=== PATIENT | male | born 1985 | race Caucasian/White ===

== ENCOUNTER 2017-04-06 16:57 | Inpatient (IN) | payer OTHER ==
[~2017-04-06] VITALS: Ht 175.3 cm; Wt 82.7 kg
[2017-04-06 17:12] VITALS: BP 131/81
[2017-04-06 17:30] LABS: BASO # 0.1 10*3/uL (0.0-0.1); BASO % 0.7 % (0.0-1.0); EOS # 0.2 10*3/uL (0.0-0.4); EOS % 1.7 % (1.0-4.0); HEMATOCRIT 39.6 % (42.0-52.0); HEMOGLOBIN 13.4 g/dl (14.0-18.0); LYMPH # 1.2 10*3/uL (1.3-4.4); LYMPH % 11.7 % (27.0-41.0); MEAN CELL VOLUME 84.6 fl (80.0-94.0); MEAN CORPUSCULAR HGB 28.6 pg (27.0-31.0); MEAN CORPUSCULAR HGB CONC 33.8 g/dl (33.0-37.0); MEAN PLATELET VOLUME 9.4 fl (9.6-12.3); MONO # 0.6 10*3/uL (0.1-1.0); NEUT # 8.2 10*3/uL (2.3-7.9); NEUT % 79.6 % (47.0-73.0); PLATELET COUNT AUTOMATED 331 10*3/uL (130-400); RED BLOOD COUNT 4.68 10*6/uL (4.50-5.90); RED CELL DISTRI WIDTH 13.3 % (0-14.5); WHITE BLOOD COUNT 10.3 10*3/uL (4.8-10.8)
[2017-04-06 17:31] LABS: BILIRUBIN NEGATIVE (NEGATIVE); BLOOD NEGATIVE (NEGATIVE); CLARITY CLEAR (CLEAR); COLOR YELLOW (YELLOW); GLUCOSE NEGATIVE (NEGATIVE); KETONE NEGATIVE (NEGATIVE); LEUKO ESTERASE NEGATIVE (NEGATIVE); NITRITE NEGATIVE (NEGATIVE); PH 5.5 (5.0-9.0); SPECIFIC GRAVITY 1.025 (1.005-1.030); UROBILINOGEN 0.2 E.U./dl (0.2-1.0)
[2017-04-06 17:39] LABS: URINE AMPHETAMINES < 1000 (1000ng/ml); URINE BARBITURATES < 200 (200ng/ml); URINE BENZODIAZEPINES < 200 (200ng/ml); URINE CANNABINOIDS (THC) < 50 (50ng/ml); URINE COCAINE < 300 (300ng/ml); URINE METHADONE < 300 (300ng/ml); URINE OPIATES > 300 (300ng/ml); URINE PHENCYCLIDINE < 25 (25ng/ml)
[2017-04-06 17:43] LABS: BACTERIA TRACE; MUCOUS 1+; WBC 0-2 wbc/hpf (0-5)
[2017-04-06 17:47] LABS: ALBUMIN 3.9 gm/dl (3.1-4.5); ALKALINE PHOSPHATASE 54 U/L (45-117); BUN 8 mg/dl (7-24); CHLORIDE 100 mmol/L (98-107); CREATININE 0.87 mg/dL (0.70-1.30); POTASSIUM 4.1 mmol/L (3.5-5.1); SGOT/AST 11 IU/L (3-35); SGPT/ALT 18 U/L (12-78); SODIUM 139 mmol/L (136-145)
[2017-04-06 17:49] LABS: ACETAMINOPHEN (TYLENOL) < 2.0 ug/ml (10-30); ETHYL ALCOHOL < 3.0 mg/dl (<3)
--- NOTE | 2017-04-06 19:00 | NUR ---
PT REFUSED FLU/PNEUMONIA VACCINE AT THIS TIME
--- NOTE | 2017-04-06 19:00 | NUR ---
A 31, admitted to , under the services of CRISTINA Pollock DO with a diagnosis of . Chief complaint is SUBSTANCE ABUSE WITHDRAWL. Patient arrived via ambulatory from ER. Monitor applied. Initial assessment completed. Vital signs taken and recorded. CRISTINA POLLOCK DO notified of admission to the unit. Orders received. See assessment for past medical history, medications and allergies. Patient and/or family oriented to unit. visitation policy reviewed. Clothing/patient valuable form completed. MELISSA MCCLENDON
--- NOTE | 2017-04-06 19:00 | NUR ---
MEDICATION REQ COMPLETED IN THE ER
[2017-04-06 20:00] VITALS: BP 115/66
[2017-04-07] VITALS: BP 128/69
--- NOTE | 2017-04-07 02:00 | NUR ---
PT REQUESTING PRN MEDICATIONS, ADMINISTERED TRAZODONE, REQUIP, ROBAXINE AND VISTARIL PO PER ORDERS WILL MONITOR EFFECTS
[2017-04-07] MEDS ORDERED: CLONIDINE0.2 MG PO (02:21)
[2017-04-07] MEDS ORDERED: LITHIUM CARBON300 MG PO (02:21)
[2017-04-07] MEDS ORDERED: NEURONTIN600 MG PO (02:22)
--- NOTE | 2017-04-07 02:23 | NUR ---
MEDICATION REQ VERIFIED WITH PT AND RESIDENT NOTIFIED
--- NOTE | 2017-04-07 03:00 | NUR ---
PRN MEDICATIONS EFFECTIVE AT THIS TIME, PT RESTING IN BED WITH EYES CLOSED RESPS EASY AND NONLABORED. CALL LIGHT WITH IN REACH
[2017-04-07 08:00] VITALS: BP 112/53
--- NOTE | 2017-04-07 08:15 | NUR ---
PATIENT WAS RESTING IN BED. PATIENT WAS START TO HAVE LEG CRAMPS AND RESTLESSNESS. PATIENT DENIES ANY SOB, PAIN, OR N/V/D. PATIENTS VITALS ARE WNL, NON-MONITORED AND DENIES CHEST PAIN. PATIENT HAS NO FURTHER REQUESTS AT THIS TIME. CALL LIGHT IS WITHIN REACH. SEE SHIFT ASSESSMENT.
--- NOTE | 2017-04-07 08:20 | NUR ---
PATIENT GIVEN ROBAXIN PER PATIENT REQUEST FOR MUSCLE CRAMPS IN THE LEGS. WILL CONTINUE TO MONITOR AND REASSESS PATIENT.
[2017-04-07 12:00] VITALS: BP 109/62
--- NOTE | 2017-04-07 12:45 | NUR ---
PATIENT IS SITTING UP IN THE BED. PATIENT DENIES ANY S&S OF DT'S AND STATES HIS LEGS FEEL MORE RELAXED AND HE HAS BEEN ABLE TO SLEEP THROUGHOUT THE DAY. PATIENT DENIES ANY PAIN, DISCOMFORT, OR SOB AND HAS NO FURTHER REQUESTS AT THIS TIME. CALL LIGHT IS WITHIN REACH. SEE SHIFT ASSESSMENT.
--- NOTE | 2017-04-07 14:18 | NUR ---
this client does not require any mental health intervention per suicide risk he scored below need. no present thoughts or plans of suciide.
[2017-04-07 16:00] VITALS: BP 106/48
--- NOTE | 2017-04-07 18:38 | NUR ---
PATIENT IS RESTING IN BED. PATIENT HAS BEEN PLEASANT AND COOPERATIVE THROUGHOUT THE SHIFT. PATIENT HAS HAD EPISODES OF RESTLESSNESS, DIAPHORESIS, AND ANXIETY. CURRENTLY PATIENT HAS NO COMPLAINTS OF DISCOMFORT. PATIENT IS ORIENTED TO THE ROOM. CALL LIGHT IS WITHIN REACH. SEE SHIFT ASSESSMENT.
[2017-04-07 20:00] VITALS: BP 117/67
--- NOTE | 2017-04-07 20:00 | NUR ---
PT MEDICATED WITH PRN BENTYL AND ROBAXIN FOR C/O STOMACH CRAMPS AND MUSCLE ACHES. PT DIAPHORETIC. OFFERED TO TURN HEAT DOWN IN ROOM. PT STATES HE IS COMFORTABLE AT THIS TIME. ENCOURAGED PT TO CALL IF IN NEED OF ANYTHING. PT AGREEABLE.
--- NOTE | 2017-04-07 22:30 | NUR ---
PT RESTING QUIETLY IN BED AT THIS TIME.
[2017-04-08] VITALS: BP 113/73
--- NOTE | 2017-04-08 02:09 | NUR ---
24 HR chart check completed.
--- NOTE | 2017-04-08 04:37 | NUR ---
PT DENIES NEED FOR ANY PRN MEDS AT THIS TIME. PT STATES HE IS SLEEPING FINE.
[2017-04-08 08:00] VITALS: BP 134/70
--- NOTE | 2017-04-08 08:00 | NUR ---
PATIENT RESTING IN BED. PATIENT DENIES ANY CHILLS, TREMORS, OR PAIN. PATIENT DOES STATE THAT THEIR LEGS FEEL RESTLESS AND THEY HAD TROUBLE SLEEPING THROUGHOUT THE NIGHT. PATIENT DENIED ANY SOB. PATIENT HAD NO FURTHER REQUESTS AT THIS TIME. REPORTS HAVING A PRODUCTIVE COUGH WITH YELLOW-GREEN SPUTUM FOR THE PAST 2 WEEKS. CALL LIGHT WITHIN REACH, SEE SHIFT ASSESSMENT.
--- NOTE | 2017-04-08 09:15 | NUR ---
PATIENT GIVEN ROBAXIN PER PT REQUEST FOR LEG CRAMPS. WILL CONTINUE TO MONITOR AND REASSESS.
--- NOTE | 2017-04-08 10:28 | NUR ---
PATIENT REPORTS THAT LEGS ARE FEELING BETTER. PATIENT HAS NO FURTHER REQUESTS AT THIS TIME, REPOSITIONING ENCOURAGED. WILL CONTINUE TO MONITOR.
[2017-04-08 12:00] VITALS: BP 120/60
--- NOTE | 2017-04-08 18:26 | NUR ---
PATIENT IS RESTING IN BED. PATIENT DENIES ANY TREMORS, RESTLESSNESS, OR DISCOMFORT. PATIENT HAS BEEN DIAPHORETIC OFF AND ON THROUGHOUT THE DAY. PATIENT IS AMBULATORY. CALL LIGHT IS WITHIN REACH, SEE SHIFT ASSESSMENT.
--- NOTE | 2017-04-08 18:59 | NUR ---
24 HR chart check completed.
[2017-04-08 20:00] VITALS: BP 122/66
[2017-04-09] VITALS: BP 118/60
--- NOTE | 2017-04-09 00:40 | NUR ---
SCHEDULED SUBUTEX GIVEN.
--- NOTE | 2017-04-09 01:39 | NUR ---
DENIES WITHDRAWAL SYMPTOMS. SUBUTEX EFFECTIVE.
[2017-04-09 06:09] LABS: BASO # 0.1 10*3/uL (0.0-0.1); BASO % 1.2 % (0.0-1.0); EOS # 0.4 10*3/uL (0.0-0.4); EOS % 4.4 % (1.0-4.0); HEMATOCRIT 40.8 % (42.0-52.0); HEMOGLOBIN 13.6 g/dl (14.0-18.0); LYMPH # 2.4 10*3/uL (1.3-4.4); LYMPH % 27.3 % (27.0-41.0); MEAN CELL VOLUME 85.4 fl (80.0-94.0); MEAN CORPUSCULAR HGB 28.5 pg (27.0-31.0); MEAN CORPUSCULAR HGB CONC 33.3 g/dl (33.0-37.0); MEAN PLATELET VOLUME 9.8 fl (9.6-12.3); MONO # 0.9 10*3/uL (0.1-1.0); MONO % 9.9 % (3.0-9.0); NEUT % 56.6 % (47.0-73.0); PLATELET COUNT AUTOMATED 311 10*3/uL (130-400); RED BLOOD COUNT 4.78 10*6/uL (4.50-5.90); WHITE BLOOD COUNT 8.8 10*3/uL (4.8-10.8)
[2017-04-09 06:28] LABS: ALBUMIN 3.3 gm/dl (3.1-4.5); ALKALINE PHOSPHATASE 47 U/L (45-117); BUN 12 mg/dl (7-24); CHLORIDE 99 mmol/L (98-107); SGOT/AST 6 IU/L (3-35); SGPT/ALT 17 U/L (12-78); SODIUM 139 mmol/L (136-145); TOTAL PROTEIN 7.6 gm/dL (6.4-8.2)
[2017-04-09 08:00] VITALS: BP 118/70
--- NOTE | 2017-04-09 09:35 | NUR ---
PATIENT IS RESTING IN BED. PATIENT IS AMBULATORY AND CAN PERFORM ALL ADL'S INDEPENDENTLY. PATIENT IS 98% ON RA AND DENIES ANY S&S OF DT'S. PATIENT DENIES N/V/D. NO FURTHER REQUESTS AT THIS TIME. CALL LIGHT SYSTEM REINFORCED. SEE SHIFT ASSESSMENT
--- NOTE | 2017-04-09 10:58 | NUR ---
D/C PLAMNING: PATIENT WAS GIVEN REFERRALS TO AREA TEEN CHALLENGES. PATIENT WANTS [employer] A[employer]LYST TREATMENT. TABITHA RUTH B.A. [employer] WORKER
[2017-04-09 12:00] VITALS: BP 127/69
--- NOTE | 2017-04-09 12:00 | NUR ---
RESTING IN BED WITH VISITOR AT HIS SIDE. RESP-EASY AND REGULAR. CALL LIGHT IN REACH.
--- NOTE | 2017-04-09 12:55 | NUR ---
LAST DOSE OF SUBUTEX GIVEN SCHEDULED.
--- NOTE | 2017-04-09 16:00 | NUR ---
Discharge instructions reviewed with patient/family. Patient receptive and verbalizes understanding. Follow-up care arranged WITH [facility]. Written instructions given to patient/family. PATIENT AMBULATED OFF FLOOR WITH FAMILY MEMBER. SHIMON PEARCE
== END 2017-04-09 16:00 | disposition home or self-care (01) | DRG 897 ==
LOC: ED 16:57 → 4E 18:06 → EDHOLD 18:06 → 4E 18:20
PROVIDERS: Nurse Practitioner Family; ADMIT Internal Medicine
DX: F11.23 Opioid dependence with withdrawal (principal); D64.9 Anemia, unspecified; D72.810 Lymphocytopenia; G25.81 Restless legs syndrome; F14.10 Cocaine abuse, uncomplicated; E66.3 Overweight; Z71.6 Tobacco abuse counseling; Z68.26 Body mass index [BMI] 26.0-26.9, adult; Z82.49 Family history of ischemic heart disease and other diseases of the circulatory system